=== PATIENT | male | born 1940 | race Caucasian/White ===

== ENCOUNTER 2021-07-26 09:28 | Outpatient (CLI) | payer MEDICARE, SELFPAY ==
--- NOTE | ~2021-07-26 | NM_ITS ---
EXAMINATION: NM bone scan whole body DATE: 07/26/2021 13:20 INDICATION: Prostate cancer. TECHNIQUE: 24.3 mCi Tc-99m HDP was administered intravenously. Delayed whole-body scintigrams were o btained. COMPARISON: CT abdomen and pelvis 07/26/2021 FINDINGS: There is joint-centered increased activity in the feet, right knee, wrists, left hand, and shoulders without radiographic comparison, likely osteoarthritis. There is joint-centered increased a ctivity in the lumbar spine correlating with facet joint osteoarthritis by CT. 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 There is increased activity adjacent to the arthroplasty, which is nonspecific and can be normal. There is increased activity in 2 anterior left ribs without abnormal CT correlate, li mandy old fractures. IMPRESSION: 1. No specific evidence of metastatic disease. Reviewed, dictated and finalized at location A. F OF SERVICE
--- NOTE | ~2021-07-26 | CT_ITS ---
EXAMINATION: CT abdomen pelvis w con EXAM DATE: 07/26/2021 10:02 INDICATION: Prostate cancer. TECHNIQUE: Spiral CT of the abdomen and pelvis was performed following intravenous injection of 100 m L Omnipaque 350. Axial, coronal and sagittal images of the abdomen and pelvis were reviewed. The do se-length product (DLP) for this examination was 482.08 mGy-cm. The exposure was tailored according to patient size (auto mA exposure control), and iterative reconstruction (ASIR) was used as additiona l dose reduction technique. There is no prior study for comparison. FINDINGS: The liver, spleen, adrenal glands and pancreas are unremarkable. Gallbladder is unremarkab le. No biliary obstruction. Portal and splenic veins are patent. Kidneys enhance symmetrically. T here is no hydronephrosis. The prostate is unremarkable. The bladder is unremarkable. There is no retroperitoneal or pelvic lymphadenopathy. There is mild scattered arteriosclerotic disease. The appendix is normal. The stomach and small bowel are unremarkable. There is expected amount of c olonic stool. No free intraperitoneal gas. The heart is normal in size. There are no pericardial or pleural effusions. The lung bases are unremarkable. There is sclerosis in the left femoral head , probably from avascular necrosis, no subchondral collapse. Otherwise, no sclerotic regions, no oste oblastic disease is suspected. 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
--- NOTE | ~2021-07-26 | XR_ITS ---
EXAMINATION: XR chest 2V DATE: 07/26/2021 10:05 INDICATION: Prostate cancer. TECHNIQUE: Frontal and lateral views of the chest were obtained. COMPARISON: None. FINDINGS: There is mild scarring at the lung apices. No pleural effusion or pneumothorax. The heart s ize is normal. IMPRESSION: 1. Mild scarring at the lung apices. 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
[2021-07-26 09:55] LABS: Estimated Glomerular Filt Rate > 60
== END 2021-07-26 09:29 | disposition home or self-care (01) ==
PROVIDERS: PCP Internal Medicine; Visit Provider Nurse Practitioner Adult Health
DX: C61 Malignant neoplasm of prostate (principal); I70.0 Atherosclerosis of aorta
CPT/HCPCS: 71046; 74177; 78306; A9561; Q9967

== ENCOUNTER 2024-03-06 09:58 | Emergency (ER) | payer MEDICARE, SELFPAY ==
--- NOTE | ~2024-03-06 | CT_ITS ---
EXAMINATION: CT abdomen pelvis w con DATE: 03/06/2024 11:11 INDICATION: Left flank hematoma. TECHNIQUE: Computed tomography (CT) of the abdomen and pelvis was performed with 100 mL Omnipaque 350 intravenous contrast. Automated exposure control and iterative reconstruction technique were employe d. The dose-length product was 909.25 mGy-cm. COMPARISON: CT abdomen and pelvis 07/26/2021 FINDINGS: The visualized portions of the lung bases demonstrate mild atelectasis. There is a small le ft pleural effusion. The heart size is normal. No pericardial effusion. Calcifications in the liver a nd spleen are consistent with old granulomatous disease. The gallbladder, pancreas, and adrenal gland s are normal. There is a 2 mm stone in right kidney. There are cysts in the kidneys measuring up to 2 .3 cm on the left. The prostate is mildly enlarged. There is a [place] catheter in expected position. T here are no dilated loops of bowel. The appendix is not visualized. There is calcified atherosclerosi s of the aorta and many of the other arteries. There are no pathologically enlarged lymph nodes. Ther e is no free intraperitoneal fluid. There is a hematoma in the left iliopsoas muscle and left retrope ritoneum. 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 There is mild thoracic spondylosis and severe lower lumbar spondylosis. IMPRESSION: 1. Hematoma in the left iliopsoas muscle and left retroperitoneum. 2. Small left pleural effusion. Reviewed, dictated and finalized at location A.
[2024-03-06 10:05] VITALS: BP 128/69; PULSE 100; RESP 20; TEMP 36.5; O2SAT 98
--- NOTE | 2024-03-06 10:19 | ED.GENADULT ---
HPI - General Adult General Chief complaint: Unspecified Stated complaint: flank hematoma Time Seen by Provider: 03/06/24 10:02 History of Present Illness HPI narrative: Patient presents here after caregiver noticed expanding hematoma to his left flank, was initially small on her left lower quadrant, then over the last few days has expanded. Related Data Home Medications Medication Instructions Recorded Confirmed apixaban 5 mg tablet 5 mg PO BID 03/02/24 03/02/24 atorvastatin 80 mg tablet 80 mg PO DAILY 03/02/24 03/02/24 cetirizine 10 mg tablet (Zyrtec) 10 mg PO DAILY 03/02/24 03/02/24 cyclobenzaprine 5 mg tablet 5 mg PO TID PRN Muscle Spasm 03/02/24 03/02/24 docusate sodium 100 mg tablet 100 mg PO BID 03/02/24 03/02/24 doxazosin 1 mg tablet 1 mg PO HS 03/02/24 03/02/24 fluticasone propionate 50 1 spray intranasal DAILY PRN 03/02/24 03/02/24 mcg/actuation nasal Rhinitis spray,suspension oxycodone 5 mg tablet 5 mg PO Q6H PRN Pain 03/02/24 03/02/24 sennosides 8.6 mg tablet (senna) 8.6 mg PO BID 03/02/24 03/02/24 Allergies Allergy/AdvReac Type Severity Reaction Status Date / Time mold Allergy Unknown Verified 03/02/24 20:07 pollen extracts Allergy Unknown Verified 03/02/24 20:07 Review of Systems Review of Systems: All systems reviewed & are unremarkable except as noted in HPI and below PMFSH Social History Social History Smoking status: Former smoker Tobacco type: cigarettes Second hand tobacco smoke exposure: No Smoking end date: 05/26/89 Alcohol intake: current Drinks per week: 8 Substance use: never Substance use type: does not use Do You Feel Safe in your Home?: Yes Lack of Transportation: No Lack of Food: Never True Current Housing: I Have Housing Concerned About Future Housing: No Difficulty Paying Gas/Electric Bills: No Difficulty Paying for Meds: No Currently Unemployed: No Education: Don't Know Difficulty w/ Childcare or Family Care: No Spiritual care concerns: No Exam Narrative: EXAMINATION OF ORGAN SYSTEMS/BODY AREAS: Constitutional: Vital signs per nursing GENERAL:[No acute distress, non-toxic appearing.] HEAD: Normal with no signs of head trauma. EYES: EOMI, conjunctiva normal ENT: Hearing grossly intact LUNGS: Nonlabored breathing. HEART: [Regular rate and rhythm] ABD: large ecchymoses left flank EXT: Normal range of motion SKIN: large ecchymoses left flank, tender NEURO: [Alert. No gross focal sensory or strength deficits.] PSYCH: Normal affect Course Vital Signs Vital signs: Vital Signs Temperature 97.7 F 03/06/24 10:05 Pulse Rate 100 03/06/24 10:05 Respiratory Rate 20 03/06/24 10:05 Blood Pressure 128/69 03/06/24 10:05 Pulse Oximetry 98 03/06/24 10:05 Oxygen Delivery Room Air 03/06/24 10:05 Temperature 97.7 F 03/06/24 10:05 Pulse Rate 100 03/06/24 10:05 Respiratory Rate 20 03/06/24 11:02 Blood Pressure 128/69 03/06/24 10:05 Pulse Oximetry 98 03/06/24 10:05 Oxygen Delivery Room Air 03/06/24 10:05 Medical Decision Making [facility] Narrative Medical decision making narrative: Patient presents to with left flank hematoma that has been stooling increasing over last few days, hemoglobin here is stable over last few days, CT obtained shows retroperitoneal and iliopsoas hematoma but no active bleeding. discussed with general surgeon, try to hold Eliquis for now, discussed with rehab physician who feels comfortable with patient returning to rehab, they will continue observing, watching the hematoma to make sure does not worsen, return precautions provided. Vital Signs Vital Signs: Vital Signs Temperature 97.7 F 03/06/24 10:05 Pulse Rate 100 03/06/24 10:05 Respiratory Rate 20 03/06/24 10:05 Blood Pressure 128/69 03/06/24 10:05 Pulse Oximetry 98 03/06/24 10:05 Oxygen Delivery Room Air 03/06/24 10:05 Temperature 97.7 F 03/06/24 10:05 Pulse Rate 100 03/06/24 10:05 Respiratory Rate 20 03/06/24 11:02 Blood Pressure 128/69 03/06/24 10:05 Pulse Oximetry 98 03/06/24 10:05 Oxygen Delivery Room Air 03/06/24 10:05 Lab Data 03/06/24 10:24 03/06/24 10:26 Labs: Lab Results 03/06/24 03/06/24 Range/Units 10:24 10:26 WBC 13.1 H (4.5-10.0) K/mm3 RBC 3.42 L (4.6-6.20) M/mm3 Hgb 10.0 L (14.0-18.0) g/dL Hct 30.0 L (42.0-52.0) % MCV 87.7 (80-100) fl MCH 29.2 (26-34) pg MCHC 33.3 (32-36) g/dl RDW 14.3 (11.5-14.5) % Plt Count 323 (150-375) k/mm3 MPV 10.3 (7.4-10.4) fl Immature Gran % (Auto) 1.1 H (0-0.5) % Neut % (Auto) 77.4 H (45.5-73.1) % Lymph % (Auto) 8.4 L (18.3-44.2) % [place] % (Auto) 11.9 H (2.6-8.5) % Eos % (Auto) 1.0 (0-4.4) % Baso % (Auto) 0.2 (0.2-1.2) % Lymph # (Auto) 1.11 (0.9-3.2) K/mm3 [place] # (Auto) 1.6 H (0.1-0.6) K/mm3 Eos # (Auto) 0.1 (0-0.3) K/mm3 Baso # (Auto) 0.0 (0.0-0.1) K/mm3 Abs Immat Gran (auto) 0.14 H (0.00-0.031) K/mm3 Absolute Neuts (auto) 10.2 H (1.3-6.7) K/mm3 Absolute Nucleated RBC 0.000 (0.0-0.012) K/mm3 Nucleated RBC % 0.0 (0.0-0.2) % PT 20.7 H (11.1-14.7) Seconds INR 1.7 APTT 38.2 H (22.3-36.8) Seconds Sodium 135 L (137-145) mmol/L Potassium 4.3 (3.4-5.0) mmol/L Chloride 102 (98-107) mmol/L Carbon Dioxide 25 (22-30) mmol/L Anion Gap 8 (4-12) mmol/L BUN 38 H (9-20) mg/dL Creatinine 1.00 (0.7-1.3) mg/dL Estim Creat Clear Calc 51 ml/min Estimated GFR > 60 (59 - ) Glucose 122 H (65-110) mg/dL Calcium 9.0 (8.4-10.2) mg/dL Total Bilirubin 3.3 H (0.2-1.3) mg/dL AST 77 H (17-59) U/L ALT 52 H (6-50) U/L Alkaline Phosphatase 85 (38-126) U/L Total Protein 7.0 (6.3-8.2) g/dL Albumin 3.8 (3.5-5.1) g/dL Blood Type O Positive Antibody Screen Negative Discharge Plan Discharge Clinical Impression: Hematoma of left flank Patient Disposition: [facility] Condition: Stable Instructions: Hematoma (ED) Additional Instructions: continue holding Eliquis for now; watch the hematoma to make sure it is not worsening; follow up with surgeon as needed and come back to the ER for any further issues Prescriptions: No Action atorvastatin 80 mg Tablet 80 mg PO DAILY sennosides [senna] 8.6 mg Tablet 8.6 mg PO BID cetirizine [Zyrtec] 10 mg Tablet 10 mg PO DAILY doxazosin 1 mg Tablet 1 mg PO HS fluticasone propionate 50 mcg/actuation [place],Suspension 1 spray INTRANASAL DAILY PRN (Reason: Rhinitis) Rx Instructions: administer into each nostril docusate sodium 100 mg Tablet 100 mg PO BID oxycodone 5 mg Tablet 5 mg PO Q6H PRN (Reason: Pain) cyclobenzaprine 5 mg Tablet 5 mg PO TID PRN (Reason: Muscle Spasm) apixaban 5 mg Tablet 5 mg PO BID Follow-up/Referrals: Pham Mason MD [Physician] - [facility] [place],Leopoldo Renteria MD [Primary Care Provider] -
[2024-03-06 10:36] LABS: Basophils Percent Auto 0.2 % (0.2-1.2); Eosinophils Absolute Auto 0.1 K/mm3 (0-0.3); Immature Granulocyte Absolute 0.14 K/mm3 (0.00-0.031); Immature Granulocyte Percent A 1.1 % (0-0.5); Lymphocytes Absolute Auto 1.11 K/mm3 (0.9-3.2); Lymphocytes Percent Auto 8.4 % (18.3-44.2); Mean Corpuscular HGB Conc 33.3 g/dl (32-36); Mean Corpuscular Hemoglobin 29.2 pg (26-34); Mean Corpuscular Volume 87.7 fl (80-100); Mean Platelet Volume 10.3 fl (7.4-10.4); Monocytes Absolute Auto 1.6 K/mm3 (0.1-0.6); Monocytes Percent Auto 11.9 % (2.6-8.5); Neutrophils Absolute Auto 10.2 K/mm3 (1.3-6.7); Neutrophils Percent Auto 77.4 % (45.5-73.1); Platelet Count Result 323 k/mm3 (150-375); Red Blood Count 3.42 M/mm3 (4.6-6.20); Red Cell Distribution Width 14.3 % (11.5-14.5); White Blood Count 13.1 K/mm3 (4.5-10.0)
[2024-03-06 10:48] LABS: Alanine Aminotransferase 52 U/L (6-50); Albumin Level 3.8 g/dL (3.5-5.1); Alkaline Phosphatase 85 U/L (38-126); Anion Gap 8 mmol/L (4-12); Aspartate Amino Transferase 77 U/L (17-59); Bilirubin,Total 3.3 mg/dL (0.2-1.3); Blood Urea Nitrogen 38 mg/dL (9-20); Carbon Dioxide 25 mmol/L (22-30); Chloride 102 mmol/L (98-107); Estimated CRCL calculation 51 ml/min; Estimated Glomerular Filt Rate > 60; Glucose 122 mg/dL (65-110); INR 1.7; Potassium 4.3 mmol/L (3.4-5.0); Prothrombin Time 20.7 Seconds (11.1-14.7); Sodium 135 mmol/L (137-145)
[2024-03-06 10:49] LABS: Partial Thromboplastin Time 38.2 Seconds (22.3-36.8)
--- NOTE | 2024-03-06 11:00 | CONS_ITS ---
Assessment and Plan Assessment and plan (1) Hematoma of left flank: Code(s): S30.1XXA - Contusion of abdominal wall, initial encounter Status: Inactive Assessment and Plan: no s/s active bleeding , hemodynamically stable, CT reviewed with no evidence of active bleeding, H&H stable, okay to continue watchful observation in rehab this point (2) Ischemic stroke: Code(s): I63.9 - Cerebral infarction, unspecified Status: Acute Assessment and Plan: continue rehab History of Present Illness Consult details Consult date: Reason for consult: other (L flank hematoma) Requesting physician: Lisa Conroy MD Narrative: The patient is an 83-year-old male with multiple medical issues including recent stroke presenting to the emergency department with a left flank hematoma. The patient has been in rehab and reports that approximately 3 or 4 days ago he noticed some bruising in his left flank. He reports that over the last few days this area has expanded and is now quite uncomfortable. The patient denies any dizziness or other systemic symptoms of anemia. He has been having his labs checked and his hemoglobin has been noted to be stable. Workup, including imaging, is significant for this left iliopsoas, retroperitoneal hematoma. Patient denies any trauma to the area. Review of Systems Review of Systems: All systems reviewed & are unremarkable except as noted in HPI and below PMFSH Social History Social History Smoking status: Former smoker Tobacco type: cigarettes Second hand tobacco smoke exposure: No Smoking end date: 05/26/89 Alcohol intake: current Drinks per week: 8 Substance use: never Substance use type: does not use Do You Feel Safe in your Home?: Yes Lack of Transportation: No Lack of Food: Never True Current Housing: I Have Housing Concerned About Future Housing: No Difficulty Paying Gas/Electric Bills: No Difficulty Paying for Meds: No Currently Unemployed: No Education: Don't Know Difficulty w/ Childcare or Family Care: No Spiritual care concerns: No Comments PMH - CVA, hyperlipidemia, CAD, aortic thrombus, prostate ca PSH - no abd surgery FH - no bleeding history Meds Home Medications and Allergies Home Medications Medication Instructions Recorded Confirmed Type apixaban 5 mg tablet 5 mg PO BID 03/02/24 03/02/24 History atorvastatin 80 mg tablet 80 mg PO DAILY 03/02/24 03/02/24 History cetirizine 10 mg tablet (Zyrtec) 10 mg PO DAILY 03/02/24 03/02/24 History cyclobenzaprine 5 mg tablet 5 mg PO TID PRN Muscle Spasm 03/02/24 03/02/24 History docusate sodium 100 mg tablet 100 mg PO BID 03/02/24 03/02/24 History doxazosin 1 mg tablet 1 mg PO HS 03/02/24 03/02/24 History fluticasone propionate 50 mcg/actuation nasal spray,suspension 1 spray intranasal DAILY PRN Rhinitis 03/02/24 03/02/24 History oxycodone 5 mg tablet 5 mg PO Q6H PRN Pain 03/02/24 03/02/24 History sennosides 8.6 mg tablet (senna) 03/02/24 03/02/24 History Allergies Vital Signs Exam Const: General: cooperative, comfortable, no acute distress and ill iliana earing HENMT: Head: normal to inspection, normocephalic and atraumatic Eyes: General: appearance normal, both eyes and all related structures Neck: Neck: normal visual inspection and no lymphadenopathy Resp: Auscultation: clear to auscultation bilaterally Cardio: Rate: regular rate Rhythm: regular rhythm GI: Inspection: normal to inspection GI Palp: No abdominal tenderness and Yes Soft to palpation Back/Spine/Pelvis: Other: L flank hematoma - no s/s active expansion, bleeding Skin: General skin exam: normal color and no rashes or lesions noted Neuro: General: patient oriented x3 and CN's II-XI intact bilaterally Extrem: General: normal to inspection and full ROM Results Labs 03/15/24 05:15 03/15/24 05:15 Labs: Abnormal lab results All other labs normal. Imaging Abdomen CT scan report/results: report reviewed and image reviewed [facility]
[2024-03-06 11:02] VITALS: RESP 20
[2024-03-06 14:26] VITALS: BP 115/64; PULSE 78; RESP 18; O2SAT 98
== END 2024-03-06 14:27 ==
PROVIDERS: Emergency Provider Emergency Medicine; PCP Internal Medicine
DX: M79.81 Nontraumatic hematoma of soft tissue (principal); Z79.01 Long term (current) use of anticoagulants; Z79.899 Other long term (current) drug therapy; Z87.891 Personal history of nicotine dependence
CPT/HCPCS: 36415; 74177; 80053; 85025; 85610; 85730; 86850; 86900; 86901; 99284; Q9967

== ENCOUNTER 2024-03-11 10:52 | Emergency (ER) | payer MEDICARE, SELFPAY ==
--- NOTE | ~2024-03-11 | CT_ITS ---
EXAMINATION: CT brain wo con DATE: 03/11/2024 12:34 INDICATION: Recent M1 segment thrombectomy. Assess for intracranial hemorrhage. TECHNIQUE: Computed tomography (CT) of the head was performed without intravenous contrast. Sagittal and coronal reconstructions were performed. The mA was adjusted according to patient size. Iterative reconstruction technique was employed. The dose-length product was 605.33 mGy-cm. COMPARISON: None FINDINGS: No acute intracranial hemorrhage, acute infarction or abnormal extra axial fluid collection. There is mild scattered white matter hypoattenuation consistent with chronic small vessel ischemic disease. Ventricles are normal and symmetric. No mass/mass effect. Mild mucosal thickening in the right maxill salima and right ethmoid sinus. Bilateral kelechi bullosa and leftward deviation of the nasal septum. Lorenza nges of bilateral intraocular lens replacement. Small bilateral mastoid effusions. Intracranial calci fied cerebral atherosclerosis is noted. IMPRESSION: 1. No acute intracranial process. 2. Mild scattered white matter hypoattenuation consistent with chronic small vessel ischemic disease. Reviewed, dictated and finalized at location A. IMPRESSION: 1. No acute intracranial process. 2. Mild scattered white matter hypoattenuation consistent with chronic small ve ssel ischemic disease.
[2024-03-11 10:48] VITALS: BP 140/69; PULSE 100; RESP 20; O2SAT 98
[2024-03-11 11:04] VITALS: O2SAT 98
--- NOTE | 2024-03-11 13:18 | ED.AMS ---
HPI - Altered Mental Status General Chief Complaint: Altered Mental Status Stated Complaint: change in mental status Time Seen by Provider: 03/11/24 12:08 History of Present Illness HPI narrative: 83-year-old male with history of recent ischemic stroke presenting with increased confusion. Patient's family is at bedside and helps with the history. He is currently in rehab due to his stroke and he was noted to be more confused than normal last night. A urinalysis was obtained which revealed a UTI. This morning he continued to be confused so they brought him in for evaluation. He currently denies any new complaints. The rehab center started him on antibiotics morning. Related Data Home Medications Medication Instructions Recorded Confirmed apixaban 5 mg tablet 5 mg PO BID 03/02/24 03/02/24 atorvastatin 80 mg tablet 80 mg PO DAILY 03/02/24 03/02/24 cetirizine 10 mg tablet (Zyrtec) 10 mg PO DAILY 03/02/24 03/02/24 cyclobenzaprine 5 mg tablet 5 mg PO TID PRN Muscle Spasm 03/02/24 03/02/24 docusate sodium 100 mg tablet 100 mg PO BID 03/02/24 03/02/24 doxazosin 1 mg tablet 1 mg PO HS 03/02/24 03/02/24 fluticasone propionate 50 1 spray intranasal DAILY PRN 03/02/24 03/02/24 mcg/actuation nasal Rhinitis spray,suspension oxycodone 5 mg tablet 5 mg PO Q6H PRN Pain 03/02/24 03/02/24 sennosides 8.6 mg tablet (senna) 8.6 mg PO BID 03/02/24 03/02/24 Allergies Allergy/AdvReac Type Severity Reaction Status Date / Time mold Allergy Unknown Verified 03/11/24 11:00 pollen extracts Allergy Unknown Verified 03/11/24 11:00 Review of Systems Review of Systems: All systems reviewed & are unremarkable except as noted in HPI and below PMFSH Social History Social History Smoking status: Former smoker Tobacco type: cigarettes Second hand tobacco smoke exposure: No Smoking end date: 05/26/89 Alcohol intake: current Drinks per week: 8 Substance use: never Substance use type: does not use Do You Feel Safe in your Home?: Yes Lack of Transportation: No Lack of Food: Never True Current Housing: I Have Housing Concerned About Future Housing: No Difficulty Paying Gas/Electric Bills: No Difficulty Paying for Meds: No Currently Unemployed: No Education: Don't Know Difficulty w/ Childcare or Family Care: No Spiritual care concerns: No Exam Narrative: GENERAL: Nontoxic, no acute distress, pleasant cooperative HEAD: Normocephalic, atraumatic. EYES: PERRLA and EOMI. ENT: Mucous membranes moist. NECK: Supple. CHEST: No respiratory distress. HEART: Tachycardic, irregular rhythm ABDOMEN: Nondistended EXTREMITIES: No edema. SKIN: Warm, dry NEURO: Alert and oriented x3. +L sided deficits PSYCH: Normal mood and affect. Course Vital Signs Vital signs: Vital Signs Pulse Rate 100 03/11/24 10:48 Respiratory Rate 20 03/11/24 10:48 Blood Pressure 140/69 03/11/24 10:48 Pulse Oximetry 98 03/11/24 10:48 Oxygen Delivery Room Air 03/11/24 10:48 Pulse Rate 100 03/11/24 10:48 Respiratory Rate 20 03/11/24 10:48 Blood Pressure 140/69 03/11/24 10:48 Pulse Oximetry 98 03/11/24 11:04 Oxygen Delivery Room Air 03/11/24 11:04 MDM - Altered Mental Status MDM Narrative Medical decision making narrative: 83-year-old male presenting with increased confusion. Vitals are stable. Patient does appear to be intermittently in an out of AFib. Heart rate is right around 100. He does have a heart monitor on given his recent stroke. He is currently having to hold his Eliquis due to a left flank hematoma. Discussed with the family that they need to follow-up closely with his outpatient physicians regarding restarting the Eliquis when possible. CT brain shows no acute abnormalities. His urinalysis from yesterday does show UTI. He was already started on antibiotics by his rehab facility. I suspect this is the cause of some o
[2024-03-11 13:53] VITALS: BP 107/57; PULSE 101; RESP 20; O2SAT 100
[2024-03-11 14:16] VITALS: BP 120/63; PULSE 100; RESP 20; O2SAT 100
[2024-03-11 15:16] VITALS: BP 109/52; PULSE 95; RESP 17; O2SAT 99
== END 2024-03-11 17:09 ==
PROVIDERS: Emergency Provider Emergency Medicine; PCP Internal Medicine
DX: R41.0 Disorientation, unspecified (principal); N39.0 Urinary tract infection, site not specified; I69.320 Aphasia following cerebral infarction; Z87.891 Personal history of nicotine dependence; Z79.01 Long term (current) use of anticoagulants; Z79.899 Other long term (current) drug therapy
CPT/HCPCS: 70450; 99284

== ENCOUNTER 2024-04-06 11:22 | Outpatient (NON) | payer MEDICARE, SELFPAY ==
[2024-04-06 12:40] LABS: Add Urine Microscopic? YES; Appearance Urine Turbid (Clear); Bacteria Urine 4+ /hpf; Bilirubin Urine 1+ (Negative); Blood Urine 3+ (Negative); Color Urine Dark Yellow (Yellow); Glucose Urine UA Negative (Negative); Ketones Urine Trace mg/dL (Negative); Leukocyte Esterase Ur 3+ LEU/UL (Negative); Need Manual Microscopic Reviewed; Nitrate Urine Positive (Negative); Protein Urine 3+ mg/dL (Negative); RBC Urine 51-100 /hpf (0-2); Specific Grav Ur 1.029 (1.001-1.035); Squamous Epithelial Cell Urine Moderate /hpf (Few); WBC Urine >100 /hpf (0-3)
== END 2024-04-06 11:23 | disposition home or self-care (01) ==
PROVIDERS: PCP Internal Medicine; Visit Provider Urology
DX: N39.0 Urinary tract infection, site not specified (principal)
CPT/HCPCS: 81001; 87077; 87086; 87186